=== PATIENT | male | born 1970 | race Two or more races ===

== ENCOUNTER 2018-08-15 13:42 | Outpatient (CLI) | payer OTHER ==
[~2018-08-15 13:42] MED LIST: ACET325T14 PO; AMLODIPINE; ASPI-515 PO; ATOR-2 PO; CHOLESTEROL MED; LISI5TAB7 PO; LISINOPRIL; POLY17PO5 PO
== END 2018-08-15 23:59 | disposition home or self-care (01) ==
LOC: CFH 13:42
PROVIDERS: ATTEND Family Medicine
DX: R53.1 Weakness (principal); Z86.73 Personal history of transient ischemic attack (TIA), and cerebral infarction without residual deficits

== ENCOUNTER 2018-10-30 21:50 | Emergency (ER) | payer OTHER ==
[~2018-10-30] VITALS: Ht 182.9 cm; Wt 111.3 kg
[2018-10-30 23:25] VITALS: BP 131/95
== END 2018-10-31 00:54 | disposition home or self-care (01) ==
LOC: MERGE 21:50 → EDBD 21:50 → ED 10-31 00:53
DX: G40.409 Other generalized epilepsy and epileptic syndromes, not intractable, without status epilepticus (principal); I10 Essential (primary) hypertension
CPT/HCPCS: 36415; 70450; 70496; 70498; 80047; 85025; 85610; 85730; 93005; 96365; 99284; J1953; Q9967